=== PATIENT | female | born 1980 | race Two or more races ===

== ENCOUNTER → 2018-04-30 | Outpatient (CLI) | payer OTHER ==
[2018-05-01 11:58] LABS: RUBEOLA (MEASLES) IGG >300.0 AU/mL (Immune >29.9)
== END | disposition home or self-care (01) ==
LOC: LABPV 12:05
PROVIDERS: ATTEND Internal Medicine
DX: Z02.1 Encounter for pre-employment examination (principal)
CPT/HCPCS: 86735; 86762; 86765; 86787; 87340